=== PATIENT | male | born 1970 | race Caucasian/White ===

== ENCOUNTER 2018-11-05 18:17 | Emergency (ER) | payer OTHER ==
[~2018-11-05] VITALS: Ht 177.8 cm; Wt 74.8 kg
[2018-11-05] MEDS ORDERED: CEFADROXIL500 MG PO (19:32)
== END 2018-11-05 20:18 | disposition home or self-care (01) ==
LOC: ER 18:17
DX: N48.1 Balanitis (principal)

== ENCOUNTER 2018-12-01 10:39 | Emergency (ER) | payer OTHER ==
[~2018-12-01] VITALS: Ht 177.8 cm; Wt 76.7 kg
[~2018-12-01 10:39] MED LIST: CEFADROXIL500 MG PO
== END 2018-12-01 16:10 | disposition home or self-care (01) ==
LOC: ER 10:39
DX: N50.812 Left testicular pain (principal); N50.811 Right testicular pain

== ENCOUNTER 2019-10-10 18:37 | Emergency (ER) | payer OTHER ==
[~2019-10-10] VITALS: Ht 175.3 cm; Wt 85.3 kg
== END 2019-10-10 19:27 | disposition home or self-care (01) ==
LOC: ER 18:37
DX: R21 Rash and other nonspecific skin eruption (principal)

== ENCOUNTER 2022-11-02 13:09 | Emergency (ER) | payer OTHER ==
[~2022-11-02] VITALS: Ht 180.3 cm; Wt 69.4 kg
== END 2022-11-02 20:14 | disposition home or self-care (01) ==
LOC: ER 13:09
DX: R10.32 Left lower quadrant pain (principal); N20.0 Calculus of kidney